=== PATIENT | male | born 1940 | race Native Hawaiian/Other Pacific Islander ===

== ENCOUNTER 2019-07-27 07:05 | Outpatient (CLI) | payer OTHER | END 2019-07-27 20:54 | disposition home or self-care (01) | LOC: LABW 07:05 | PROVIDERS: Internal Medicine Cardiovascular Disease | DX: R94.31 Abnormal electrocardiogram [ECG] [EKG] (principal); I25.10 Atherosclerotic heart disease of native coronary artery without angina pectoris; E78.00 Pure hypercholesterolemia, unspecified; I44.7 Left bundle-branch block, unspecified; Z95.5 Presence of coronary angioplasty implant and graft | CPT/HCPCS: 36415; 80061; 80076 ==

== ENCOUNTER 2022-08-30 09:35 | Emergency (ER) | payer OTHER ==
[~2022-08-30] VITALS: Ht 177.8 cm; Wt 81.6 kg
[2022-08-30 09:51] VITALS: BP 111/69; TEMP 98.3
== END 2022-08-30 11:52 | disposition home or self-care (01) ==
LOC: ED 09:35
PROC: 0HQLXZZ Repair Left Lower Leg Skin, External Approach (ICD-10-PCS; principal; 2022-08-30)
DX: S81.812A Laceration without foreign body, left lower leg, initial encounter (principal); W22.8XXA Striking against or struck by other objects, initial encounter; Y92.094 Garage of other non-institutional residence as the place of occurrence of the external cause
CPT/HCPCS: 90471; 90715; 96372; 99283; J7040

== ENCOUNTER 2022-09-13 10:05 | Emergency (ER) | payer OTHER ==
[~2022-09-13] VITALS: Ht 177.8 cm; Wt 81.6 kg
[2022-09-13 10:18] VITALS: TEMP 98.6
[2022-09-13 10:45] VITALS: BP 130/80
== END 2022-09-13 10:45 | disposition home or self-care (01) ==
LOC: ED 10:05
DX: S81.812D Laceration without foreign body, left lower leg, subsequent encounter (principal); Z48.02 Encounter for removal of sutures; X58.XXXD Exposure to other specified factors, subsequent encounter; Y92.89 Other specified places as the place of occurrence of the external cause
CPT/HCPCS: 99281